=== PATIENT | female | born 1975 | race Two or more races ===

== ENCOUNTER → 2018-03-06 10:17 | Outpatient (CLI) | payer OTHER, SELFPAY ==
--- NOTE | 2018-03-06 10:24 | MM_ITS ---
MM Dig screening mamm BI w/CAD ORDERING PHYSICIAN : [facility] PATIENT AGE: 42 years GENDER: Female COMPARISON: Baseline mammogram INDICATION: ITS.REASON: SCREENING no new complaints. Patient takes control pills. Noncontributory family history TECHNIQUE: Standard CC and MLO images were obtained. R2 CAD reviewed. FINDINGS: . Minimal residual fibroglandular elements scattered throughout both breasts. Mild asymmetry with no dominant mass nor suspicious calcifications. Slightly more evident thyroid gland elements towards upper-outer quadrant left breast and right but these dissipate on the MLO view. Not of concern. CAD computer review highlights no areas of concern either. ------ IMPRESSION: No areas of significant concern mild asymmetry. Follow-up in one year recommended BI-RADS Category: 1 Negative RECOMMENDED FOLLOW-UP: 1YR 1 YEAR FOLLOW-UP (A letter has been sent to the patient regarding results of the study.)
== END ==
PROVIDERS: Family Provider Nurse Practitioner Obstetrics & Gynecology; Visit Provider Nurse Practitioner Obstetrics & Gynecology
DX: Z12.31 Encounter for screening mammogram for malignant neoplasm of breast (principal)
CPT/HCPCS: 77067

== ENCOUNTER 2018-04-12 15:30 | Inpatient (IN) ==
--- NOTE | 2018-04-12 16:12 | Emergency Department Note ---
ED Disposition Clinical Impression: Acute hepatitis, Intractable pain Disposition: Still a Patient Condition on Discharge: Fair - Critical Care Critical Care Time: No Attestation: On 04/12/18, the high probability of a clinically significant, sudden or life threatening deterioration of the following system(s) required my full and direct attention, intervention and personal management. The time I documented below is in addition to time spent performing reported procedures but includes the following listed in this critical care notation. Medical Decision Making - Vj Inquiry Pt receiving controlled substance: No Vj was queried for this patient: No Vital Signs: 04/12/18 15:36 04/12/18 15:43 04/12/18 17:09 Temperature 98.3 F 98.3 F Temperature Source Oral Oral Pulse Rate [Right Radial] 114 H 114 H 102 H Respiratory Rate 20 20 Blood Pressure [Right Arm] 118/66 118/66 104/55 L Blood Pressure Mean [Right Arm] 83 83 71 Blood Pressure Source [Right Arm] Automatic Cuff Automatic Cuff Automatic Cuff Blood Pressure Position [Right Arm] Sitting Sitting Supine 02 Sat by Pulse Oximetry 97 97 99 Oxygen Delivery Method Room Air Room Air Room Air - Lab Data Lab Results 04/12/18 15:55: Urine Color Yellow, Urine Appearance Clear, Urine pH 7.0, Ur Specific [place] 1.020, Urine Protein Negative, Urine Glucose (UA) Negative, Urine Ketones Negative, Urine Blood Negative, Urine Nitrate Negative, Urine Bilirubin Negative, Urine Urobilinogen 1.0, Ur Leukocyte Esterase Negative, Urine WBC Occasional, Ur Squamous Epith Cells 3-5, Urine Bacteria 1+ 04/12/18 15:55: Urine HCG, Qual Negative 04/12/18 15:55: WBC 14.4 H, RBC 4.37, Hgb 14.7, Hct 44.1, MCV 100.9 H, MCH 33.5 H, MCHC 33.2, RDW 12.8, Plt Count 270, MPV 8.0, Neut % (Auto) 92.1 H, Lymph % (Auto) 6.2 L, [place] % (Auto) 1.0 L, Eos % (Auto) 0.6, Baso % (Auto) 0.1, Neut # (Auto) 13.3 H, Lymph # (Auto) 0.9, [place] # (Auto) 0.2, Eos # (Auto) 0.1, Baso # (Auto) 0.0, Total Counted 100, Neutrophils % (Manual) 93 H, Band Neutrophils % 1.0, Lymphocytes % (Manual) 5 L, Monocytes % (Manual) 1 L, Platelet Estimate Normal, RBC Morphology Normal 04/12/18 15:55: Sodium 140, Potassium 3.5, Chloride 103, Carbon Dioxide 27, Anion Gap 13.5, BUN 9, Creatinine 0.66, Estimated Creat Clear 135, Estimated GFR 99, Est GFR ( Amer) 120, Glucose 133 H, Calcium 8.6, Total Bilirubin 1.0, AST 248 H, ALT 169 H, Alkaline Phosphatase 167 H, Total Protein 7.9, Albumin 3.8, Globulin 4.1 H, Albumin/Globulin Ratio 0.9 L, Lipase 163 04/12/18 15:55: Total Creatine Kinase 162, CK-MB (CK-2) 1.9, CK-MB (CK-2) Rel Index 1.2, Troponin I < 0.02 04/12/18 15:55: PT 10.4, INR 1.01, APTT 25.9 04/12/18 18:10: Lactate 1.8 Result diagrams: 04/12/18 15:55 04/12/18 15:55 Orders (Tests/Meds): ED MEDICATIONS Discontinued Medications Generic Name Dose Route Start Last Admin Trade Name Tomy PRN Reason Stop Dose Admin Diatrizoate Meglum/Diatrizoate Sod 30 ml 04/12/18 16:09 04/12/18 16:32 Gastrografin 66%-10% 30ml PO 04/12/18 16:10 30 ml ONCE ONE Administration Sodium Chloride 1,000 mls @ 999 mls/hr 04/12/18 16:45 04/12/18 16:38 Sod Chlor 0.9% 1000ml Bag IV 04/12/18 17:45 999 mls/hr .Q1H1M RUBY Administration Iopamidol 75 ml 04/12/18 18:30 04/12/18 18:32 [id number]; 75ml Vial IV 04/12/18 18:31 75 ml ONCE ONE Administration Protocol Morphine Sulfate 2 mg 04/12/18 16:32 04/12/18 16:38 Morphine 2mg/Ml Syringe IV 04/12/18 16:33 2 mg ONCE ONE Administration Morphine Sulfate 2 mg 04/12/18 18:37 04/12/18 18:40 Morphine 2mg/Ml Syringe IV 04/12/18 18:38 2 mg ONCE ONE Administration Ondansetron HCl 4 mg 04/12/18 16:32 04/12/18 16:38 Zofran 4mg/2ml Vial IV 04/12/18 16:33 4 mg ONCE ONE Administration Sodium Chloride 10 ml 04/12/18 18:30 04/12/18 18:32 Rad-Saline Flush 10ml Syringe IV 04/12/18 18:31 10 ml ONCE ONE Administration ORDERS Category Date Time Status CT abdomen pelvis w con Stat Cat Scan 04/12/18 16:09 Taken Urinalysis and Microscopic Stat Lab 04/12/18 15:55 Ordered Blood Culture Stat Micro 04/12/18 18:10 Received ECG Request by /Tesfaye Stat Y 04/12/18 16:14 Ordered - CT Data CT Scan: Abdomen, Pelvis Time Received: 19:[address] Reviewed: Yes: I have viewed the radiologist's interpretation Preliminary Findings: Normal/NAD - ECG Data Tracing #1 Sinus tachycardia 103/min baseline artifact no acute ST segment or T wave changes ECG initial impression date: 04/12/18 ECG initial impression time: 16:25 Medical Decision Narrative: Patient underwent lab work was positive for elevated liver function test with normal bilirubin and lipase. I spoke with Dr. Jeff on-call physician for unassigned patients who agreed to admit the patient for supportive care in the form of IV fluids pain control and hepatitis panel. Abdominal Pain HPI - General Chief Complaint: Abdominal Pain Stated Complaint: stomach to back pain Time Seen by Provider: 04/12/18 15:40 Mode of Arrival: Ambulatory Source of Information: Patient Limitations: No Limitations Description of Symptoms (Recalled from ER Triage Doc. 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 denies any [place], vomiting, diarrhea. cpta none - History of Present Illness HPI narrative: 42 yrs old splenic female status post cholecystectomy who developed epigastric p ain of 3 hours duration following breakfast. The pain is crampy radiating across the upper abdomen rated 8/10 without nausea vomiting or diarrhea. No hematemesis no coffee-ground emesis no melanotic stool no bleeding per rectum. MD complaint: abdominal pain Onset (ago): hour(s) (3 hours) Consistency: constant Location: epigastric Severity: moderate Severity scale (1-10): 8 Quality: cramping Relieving factors: nothing Exacerbating factors: nothing Associated symptoms: denies other symptoms - Related Data Home Medications Medication Instructions Recorded Confirmed No Known Home Medications 04/12/18 04/12/18 Allergies Allergy/AdvReac Type Severity Reaction Status Date / Time NO KNOWN ALLERGIES Allergy Uncoded 06/17/17 15:22 [facility] History I have reviewed the patient's past medical history: Yes Other Surgeries: Yes: No Previous Surgery - Social History Smoking Status: Never smoker Alcohol Intake: never - Psychiatric History Expresses thoughts of harming self/others: None Suicide Plan Description: No Plan Family Hx:: No significant family history ROS Obtained: Yes All systems reviewed & no additional complaints Physical Exam - General General appearance: alert, in no apparent distress - Head Head exam: atraumatic, normocephalic, normal inspection - Eye Eye exam: Present: normal appearance, PERRL, EOMI. Absent: scleral icterus, nystagmus - ENT ENT exam: Present: normal exam, normal oropharynx, mucous membranes moist, TM's normal bilaterally, normal external ear exam - Neck Neck exam: Present: normal inspection, full ROM, trachea midline. Absent: tenderness, meningismus, lymphadenopathy - Chest Chest inspection: Present: normal inspection, symmetric chest wall rise. Absent: tenderness - Respiratory Respiratory exam: Present: normal lung sounds bilaterally. Absent: respiratory distress, wheezes - Cardiovascular Cardiovascular exam: Present: regular rate, normal rhythm, normal heart sounds. Absent: JVD - Abdominal Exam Abdominal exam: Present: soft, tenderness, normal bowel sounds. Absent: distention, guarding, rebound, rigidity, Dean's sign, tenderness at McBurney's Point - Extremities Exam Extremities exam: Present: normal inspection, full ROM, normal capillary refill. Absent: tenderness, calf tenderness - Back Exam Back exam: Present: normal inspection. Absent: tenderness, CVA tenderness (R), CVA tenderness (L) - Neurological Exam Neurological exam: Present: alert, oriented X3, CN II-XII intact, motor sensory deficit, reflexes normal - Psychiatric Psychiatric exam: Present: normal affect, normal mood - Skin Skin exam: Present: warm, dry, intact, normal color - Lymphatic Lymphatic Findings: no adenopathy
[2018-04-12 16:20] LABS: Microscopic, Urine URINE MICROSCOPIC (MICROSCOPIC)
[2018-04-12 16:22] LABS: Appearance,Urine CLEAR (Clear); Bilirubin,Urine Negative (Negative); Blood, Urine Negative (Negative); Color,Urine YELLOW (Yellow); Glucose,Urine (UA) Negative (Negative); Ketones,Urine Negative (Negative); Leukocyte Esterase,Urine Negative (Negative); Protein,Urine Negative (Negative)
[2018-04-12 16:23] LABS: Basophils % 0.1 % (0.1-2.0); Eosinophils # 0.1 K/mm3 (0.0-0.4); Eosinophils % 0.6 % (0.1-12.0); Hematocrit 44.1 % (37.0-47.0); Hemoglobin 14.7 g/dL (12.2-16.2); Lymphocytes # 0.9 K/mm3 (0.7-4.5); Lymphocytes % 6.2 K/mm3 (10-50); Mean Corpuscular HGB Conc 33.2 g/dL (31.8-35.4); Mean Corpuscular Hemoglobin 33.5 pg (27.0-31.2); Mean Corpuscular Volume 100.9 fl (81-99); Monocytes # 0.2 K/mm3 (0.1-1.0); Neutrophils # 13.3 K/mm3 (1.8-7.8); Neutrophils % 92.1 % (37.0-80.0); Platelet Count 270 K/mm3 (142-424); Red Blood Count 4.37 M/mm3 (4.20-5.40); Red Cell Distribution Width 12.8 % (11.5-17.5); White Blood Count 14.4 K/mm3 (4.8-10.8)
[2018-04-12 16:30] LABS: Bacteria,Urine 1+ /lpf; WBC,Urine Occasional #/hpf (0-3)
[2018-04-12 16:36] LABS: Albumin Level 3.8 gm/dL (3.4-5.0); Albumin/Globulin Ratio 0.9 (1.1-1.8); Anion Gap 13.5 mEq/L (5-15); Calcium 8.6 mg/dL (8.5-10.1); Globulin 4.1 gm/dl (1.3-3.2); Potassium 3.5 mmoL/L (3.5-5.1); Total Protein,Serum 7.9 gm/dL (6.4-8.2)
[2018-04-12 16:38] LABS: Lymphocytes % 5 % (10-50); Monocytes % 1 % (2-9); Neutrophils % 93 % (42-76); RBC Morphology Normal; Total Cells Counted 100
[2018-04-12 16:42] LABS: Creatine Kinase 162 U/L (26-192)
[2018-04-12 17:21] LABS: Activated Partial Thrombo Time 25.9 seconds (23.6-34.0); INR 1.01 (0.9-1.1); Prothrombin Time 10.4 seconds (9.4-11.8)
--- NOTE | 2018-04-13 06:59 | History & Physical Report ---
*Admission Date: 04/13/18 *Chief complaint: Abdominal pain *History of present illness: 42-year-old female with history of prior cholecystectomy presented to the emergency department with complaint of abdominal pain. Patient tells me that she has had this pain in the past and will usually last 5-10 minutes. However yesterday pain was onset around noon and after 2 hours of pain she decided to seek treatment at the emergency department. In the ER workup was significant for elevated liver function tests. Patient denies fevers, chills, nausea, vomiting, diarrhea. She has no sick contacts. She was treated with morphine for pain in the emergency department. Pain resolved. Patient was admitted for monitoring of recurrence of pain as well as repeat labs and ultrasound this a.m. Patient was able to tolerate p.o. intake after admission. [facility] History I have reviewed the patient's past medical history: Yes Other Surgeries: Yes: Cholecystectomy - *Social History Educational Level: Completed Grade School Smoking Status: Never smoker Alcohol Intake: never Occupational Status: employed Housing: other Household Members: children - Psychiatric History Expresses thoughts of harming self/others: None Suicide Plan Description: No Plan *Family Hx:: No significant family history Review of Systems - Review of Systems Review of systems:: pertinent systems reviewed and negative unless documented below - Constitutional Denies anorexia, Denies body ache(s), Denies chills - Eyes Denies blurry vision - *Cardiovascular Denies chest pain, Denies chest pain at rest - *Respiratory Denies change in phlegm color, Denies chest congestion - *Gastrointestinal Reports cramping, Denies bloating, Denies change in bowel habits, Denies loose stools, Denies difficulty swallowing, Denies feeling full early, Denies excessive passing of gas Meds Home Medications Medication Instructions Recorded Confirmed Type No Known Home Medications 04/12/18 04/12/18 History Allergies Allergy/AdvReac Type Severity Reaction Status Date / Time NO KNOWN ALLERGIES Allergy Uncoded 06/17/17 15:22 Exam Vital signs and Labs for Last 24 Hours: Temp Pulse Resp BP Pulse Ox 98.4 F 77 16 94/57 L 97 04/13/18 04:00 04/13/18 04:00 04/13/18 04:00 04/13/18 04:00 04/13/18 04:00 Laboratory Results - last 24 hr 04/12/18 15:55: Urine Color Yellow, Urine Appearance Clear, Urine pH 7.0, Ur Specific [place] 1.020, Urine Protein Negative, Urine Glucose (UA) Negative, Urine Ketones Negative, Urine Blood Negative, Urine Nitrate Negative, Urine Bilirubin Negative, Urine Urobilinogen 1.0, Ur Leukocyte Esterase Negative, Urine WBC Occasional, Ur Squamous Epith Cells 3-5, Urine Bacteria 1+ 04/12/18 15:55: Urine HCG, Qual Negative 04/12/18 15:55: WBC 14.4 H, RBC 4.37, Hgb 14.7, Hct 44.1, MCV 100.9 H, MCH 33.5 H, MCHC 33.2, RDW 12.8, Plt Count 270, MPV 8.0, Neut % (Auto) 92.1 H, Lymph % (Auto) 6.2 L, [place] % (Auto) 1.0 L, Eos % (Auto) 0.6, Baso % (Auto) 0.1, Neut # (Auto) 13.3 H, Lymph # (Auto) 0.9, [place] # (Auto) 0.2, Eos # (Auto) 0.1, Baso # (Auto) 0.0, Total Counted 100, Neutrophils % (Manual) 93 H, Band Neutrophils % 1.0, Lymphocytes % (Manual) 5 L, Monocytes % (Manual) 1 L, Platelet Estimate Normal, RBC Morphology Normal 04/12/18 15:55: Sodium 140, Potassium 3.5, Chloride 103, Carbon Dioxide 27, Anion Gap 13.5, BUN 9, Creatinine 0.66, Estimated Creat Clear 135, Estimated GFR 99, Est GFR ( Amer) 120, Glucose 133 H, Calcium 8.6, Total Bilirubin 1.0, AST 248 H, ALT 169 H, Alkaline Phosphatase 167 H, Total Protein 7.9, Albumin 3.8, Globulin 4.1 H, Albumin/Globulin Ratio 0.9 L, Lipase 163 04/12/18 15:55: Total Creatine Kinase 162, CK-MB (CK-2) 1.9, CK-MB (CK-2) Rel Index 1.2, Troponin I < 0.02 04/12/18 15:55: PT 10.4, INR 1.01, APTT 25.9 04/12/18 18:10: Lactate 1.8 I & O for Last 24 hours: Intake & Output 10/12/18 10/13/18 10/14/18 10/15/18 11:59 11:59 11:59 11:59 Intake Total 941 / 941 Balance 941 / 941 Weight 161 lb 8 oz Narrative: Patient is laying comfortably in bed in no distress. Eyes without scleral icterus. Oropharynx is moist. Neck is without lymphadenopathy. Lungs are clear to auscultation. Heart has regular rate and rhythm. Abdomen is soft, nontender, nondistended. Bowel sounds are present Assessment and Plan (1) Acute hepatitis Current visit: Yes Status: Acute Category: Medical Code(s): B17.9 - Acute viral hepatitis, unspecified - Assessment and plan all Dx Assessment and Plan for all problems:: Ultrasound of the abdomen today and await repeat liver function test. Patient is feeling better. Her diet will be advanced after ultrasound. Anticipate discharge home later this afternoon
[2018-04-13 07:19] LABS: Albumin Level 2.8 gm/dL (3.4-5.0); Anion Gap 9.8 mEq/L (5-15); Bilirubin,Direct 0.5 mg/dL (0.0-0.2); Bilirubin,Indirect 0.6 mg/dL (0.0-0.9); Bilirubin,Total 1.1 mg/dL (0.2-1.0); Potassium 3.8 mmoL/L (3.5-5.1); Total Protein,Serum 6.1 gm/dL (6.4-8.2)
[2018-04-13 07:21] LABS: INR 1.1 (0.9-1.1); Prothrombin Time 11.3 seconds (9.4-11.8)
--- NOTE | 2018-04-13 07:33 | Pharmacy Consult Notes ---
[facility] Pharmacy VTE Monitoring - Patient Demographics Admission date: 04/13/18 Report Date: 04/13/18 Time: 07:32 Allergies/Adverse Reactions: Patient Allergies NO KNOWN ALLERGIES Allergy (Uncoded 06/17/17 15:22) Height: 1.55 m Weight: 73.255 kg Patient Problems: Current Active Problems (This Medical Record has been edited. Action required.) Acute hepatitis (Acute) Intractable pain (Acute) - VTE Risk Labs: VTE Related Lab Results Hgb 14.7 g/dL (12.2-16.2) 04/12/18 15:55 Hct 44.1 % (37.0-47.0) 04/12/18 15:55 Plt Count 270 K/mm3 (142-424) 04/12/18 15:55 PT 11.3 seconds (9.4-11.8) 04/13/18 06:35 INR 1.10 (0.9-1.1) 04/13/18 06:35 APTT 25.9 seconds (23.6-34.0) 04/12/18 15:55 BUN 6 mg/dL (7-18) L D 04/13/18 06:35 Creatinine 0.59 mg/dL (0.55-1.02) 04/13/18 06:35 Estimated Creat Clear 147 mL/min (0-300) 04/13/18 06:35 Was VTE Risk Assessment Performed: Yes VTE Score: 0 VTE Risk Level: Very Low Risk Clinical Trial Participant: No - Prophylaxis VTE Prophylaxis Ordered?: Yes Types of VTE Prophylaxis: TEDS Knee High
[2018-04-13 07:38] LABS: Calcium 7.7 mg/dL (8.5-10.1)
[2018-04-14 06:04] LABS: Basophils % 0.4 % (0.1-2.0); Eosinophils # 0.1 K/mm3 (0.0-0.4); Hematocrit 37.3 % (37.0-47.0); Hemoglobin 12.1 g/dL (12.2-16.2); Lymphocytes # 1.3 K/mm3 (0.7-4.5); Lymphocytes % 23.3 K/mm3 (10-50); Mean Corpuscular HGB Conc 32.5 g/dL (31.8-35.4); Mean Corpuscular Hemoglobin 33.3 pg (27.0-31.2); Mean Corpuscular Volume 102.4 fl (81-99); Mean Platelet Volume 8.3 fl (7.4-10.4); Monocytes # 0.3 K/mm3 (0.1-1.0); Monocytes % 6.1 % (1.7-9.3); Neutrophils # 3.7 K/mm3 (1.8-7.8); Neutrophils % 68.2 % (37.0-80.0); Platelet Count 200 K/mm3 (142-424); Red Blood Count 3.65 M/mm3 (4.20-5.40); Red Cell Distribution Width 12.9 % (11.5-17.5); White Blood Count 5.5 K/mm3 (4.8-10.8)
[2018-04-14 06:09] LABS: Bilirubin,Direct 0.2 mg/dL (0.0-0.2); Bilirubin,Indirect 0.4 mg/dL (0.0-0.9); Bilirubin,Total 0.6 mg/dL (0.2-1.0); Total Protein,Serum 6.5 gm/dL (6.4-8.2)
--- NOTE | 2018-04-14 07:13 | Discharge Summary ---
General - General Admission date:: 04/12/18 Discharge date: 04/14/18 HPI HPI: 42-year-old female with history of prior cholecystectomy presented to the emergency department with complaint of abdominal pain. Patient tells me that she has had this pain in the past and will usually last 5-10 minutes. However yesterday pain was onset around noon and after 2 hours of pain she decided to seek treatment at the emergency department. In the ER workup was significant for elevated liver function tests. Patient denies fevers, chills, nausea, vomiting, diarrhea. She has no sick contacts. She was treated with morphine for pain in the emergency department. Pain resolved. Patient was admitted for monitoring of recurrence of pain as well as repeat labs and ultrasound this a.m. Patient was able to tolerate p.o. intake after admission. Hospital Course Hospital Course: Patient was admtted for pain control. She did not require any further IV narcotics. The following morning LFT's had risen. Her aerobic blood culture was positive for e.coli. Patient was given IV rocephin. She did not develop any fevers or futher episodes of abdominal pain. Her CT scan of the abdomen/pelvis showed pneumobilia. Her ultrasound of the liver showed pneumobilia. On 04/14 her LFT's were trending down. She remained afebrile. She was discharged to home. Because of her E. coli sepsis(tachycardia on admit, elevated lft's, hypotension) she will need IV rocephin daily for a total of 7 days. She will follow up in my office on Apr 20 at 10 with Sherrie Zuniga APRN Objective Vital signs: Temp Pulse Resp BP Pulse Ox 98.2 F 61 16 90/60 L 100 04/14/18 03:48 04/14/18 03:48 04/14/18 03:48 04/14/18 03:48 04/14/18 03:48 Results Labs on day of discharge: Labs from last 24 hours 04/14/18 04/14/18 04/13/18 05:35 05:35 06:35 WBC 5.5 D RBC 3.65 L Hgb 12.1 L Hct 37.3 MCV 102.4 H MCH 33.3 H MCHC 32.5 RDW 12.9 Plt Count 200 D MPV 8.3 Neut % (Auto) 68.2 Lymph % (Auto) 23.3 [place] % (Auto) 6.1 Eos % (Auto) 2.0 Baso % (Auto) 0.4 Neut # (Auto) 3.7 Lymph # (Auto) 1.3 [place] # (Auto) 0.3 Eos # (Auto) 0.1 Baso # (Auto) 0.0 PT INR Sodium 137 Potassium 3.8 Chloride 106 Carbon Dioxide 25 Anion Gap 9.8 BUN 6 L D Creatinine 0.59 Estimated Creat Clear 147 Estimated GFR 113 Est GFR ( Amer) 137 Glucose 113 H Calcium 7.7 L D Total Bilirubin 0.6 1.1 H Direct Bilirubin 0.2 0.5 H Indirect Bilirubin 0.4 0.6 AST 105 H D 285 H ALT 259 H D 369 H* Alkaline Phosphatase 170 H 151 H Total Protein 6.5 6.1 L Albumin 3.0 L 2.8 L D 04/13/18 06:35 WBC RBC Hgb Hct MCV MCH MCHC RDW Plt Count MPV Neut % (Auto) Lymph % (Auto) [place] % (Auto) Eos % (Auto) Baso % (Auto) Neut # (Auto) Lymph # (Auto) [place] # (Auto) Eos # (Auto) Baso # (Auto) PT 11.3 INR 1.10 Sodium Potassium Chloride Carbon Dioxide Anion Gap BUN Creatinine Estimated Creat Clear Estimated GFR Est GFR ( Amer) Glucose Calcium Total Bilirubin Direct Bilirubin Indirect Bilirubin AST ALT Alkaline Phosphatase Total Protein Albumin Preliminary micro results at discharge 04/12/18 18:10 Blood Culture - Preliminary Blood DS: Diagnosis - Discharge Diagnosis (1) Acute hepatitis Status: Acute (2) Sepsis due to Escherichia coli Status: Acute Discharge Plan - Patient Discharge Instructions ACTIVITY: Continue current activity DIET: continue same diet Additional Instructions: Return to the hospital daily for IV infusion of Rocephin until Apr 19. - Follow up Plan Follow up with: Sherrie Zuniga APRN [Nurse Practitioner] - 04/20/18 10:00 am Disposition: Home, Self-Residential Medications: Home Medications Medication Instructions Recorded Confirmed Type No Known Home Medications 04/12/18 04/12/18 History Prescriptions/Medication Reconciliation: New Ceftriaxone 1 gm [Rocephin 1gm ADV] 1 gm IV Q24H vial.port No Action No Known Home Medications
[2018-04-14 11:17] LABS: Hepatitis B Core Antibody IgM Negative (Negative); Hepatitis B Surface Antigen Negative (Negative)
[2018-04-15 13:06] LABS: Hepatitis C Antibody <0.1 s/co ratio (0.0-0.9)
== END 2018-04-14 09:10 | disposition home or self-care (01) ==
LOC: ER 15:30 → 2ND 15:30 → OBSVTOIN 18:31 → 2ND 20:27
PROVIDERS: ADMIT Family Medicine; ATTEND Family Medicine

== ENCOUNTER 2018-04-15 09:55 | Outpatient (CLI) | payer OTHER, SELFPAY ==
[2018-04-15 10:40] VITALS: BP 104/65; PULSE 72; RESP 18; TEMP 36.5; O2SAT 99
[2018-04-15 11:10] VITALS: BP 108/61; PULSE 74; RESP 18; O2SAT 98
[2018-04-15 11:20] VITALS: BP 105/66; PULSE 76; RESP 18; O2SAT 99
== END 2018-04-15 11:25 | disposition home or self-care (01) ==
LOC: INF 09:55
PROVIDERS: Family Provider Nurse Practitioner Obstetrics & Gynecology; Visit Provider Family Medicine
DX: A41.51 Sepsis due to Escherichia coli [E. coli] (principal)
CPT/HCPCS: 96365

== ENCOUNTER 2018-04-16 10:00 | Outpatient (CLI) | payer OTHER, SELFPAY ==
[2018-04-16 10:20] VITALS: BP 96/55; PULSE 60; RESP 18; TEMP 37.1; O2SAT 98
[2018-04-16 10:45] VITALS: BP 103/58; PULSE 60; RESP 16
[2018-04-16 11:10] VITALS: BP 99/57; PULSE 55; RESP 16
== END 2018-04-16 11:15 | disposition home or self-care (01) ==
LOC: INF 10:11
PROVIDERS: Family Provider Nurse Practitioner Obstetrics & Gynecology; Visit Provider Family Medicine
DX: A41.51 Sepsis due to Escherichia coli [E. coli] (principal); B17.9 Acute viral hepatitis, unspecified
CPT/HCPCS: 96365

== ENCOUNTER 2018-04-17 10:17 | Outpatient (CLI) | payer OTHER, SELFPAY ==
[2018-04-17 10:35] VITALS: BP 117/66; PULSE 66; RESP 18; TEMP 36.6
[2018-04-17 11:05] VITALS: BP 89/53; PULSE 57; RESP 16
== END 2018-04-17 11:35 | disposition home or self-care (01) ==
LOC: INF 10:17
PROVIDERS: Visit Provider Family Medicine
DX: A41.51 Sepsis due to Escherichia coli [E. coli] (principal); B17.9 Acute viral hepatitis, unspecified
CPT/HCPCS: 96365

== ENCOUNTER → 2018-04-18 10:00 | Outpatient (CLI) | payer OTHER, SELFPAY ==
[2018-04-18 10:20] VITALS: BP 94/49; PULSE 61; RESP 18; TEMP 36.2; O2SAT 98; BMI 30.4
[2018-04-18 10:46] VITALS: BP 97/50; PULSE 57; RESP 18; TEMP 36.9; O2SAT 96
== END ==
PROVIDERS: Family Provider Nurse Practitioner Obstetrics & Gynecology; Visit Provider Family Medicine
DX: A41.51 Sepsis due to Escherichia coli [E. coli] (principal); B17.9 Acute viral hepatitis, unspecified
CPT/HCPCS: 96365; 96374

== ENCOUNTER → 2018-04-19 09:56 | Outpatient (CLI) | payer OTHER, SELFPAY ==
[2018-04-19 10:52] VITALS: BP 102/61; PULSE 58; RESP 16; TEMP 36.9; O2SAT 100; BMI 30.4
[2018-04-19 11:28] VITALS: BP 105/51; PULSE 62; RESP 16; TEMP 36.7; O2SAT 100
--- NOTE | 2018-04-19 11:29 | PC.NURSE ---
(L)FA IV discontinued using aseptic technique. Tip intact. No s/s of infection. Site covered /c 2x2 gauze and secured /c coban. Pt instructed to remove coban and dressing after 1-2 hours. If site becomes painful, warm, reddened, or has discharge, pt instructed to call MD or present to [facility]. Pt verbalized understanding.
== END ==
PROVIDERS: Family Provider Nurse Practitioner Obstetrics & Gynecology; Visit Provider Family Medicine
DX: A41.51 Sepsis due to Escherichia coli [E. coli] (principal); B17.9 Acute viral hepatitis, unspecified
CPT/HCPCS: 96365; G0463

== ENCOUNTER 2018-08-02 02:33 | Inpatient (IN) ==
[2018-08-02 03:02] LABS: Appearance,Urine CLEAR (Clear); Bilirubin,Urine Negative (Negative); Blood, Urine Negative (Negative); Color,Urine YELLOW (Yellow); Glucose,Urine (UA) Negative (Negative); Ketones,Urine Negative (Negative); Leukocyte Esterase,Urine Negative (Negative); Microscopic, Urine URINE MICROSCOPIC (MICROSCOPIC); PH,Urine 7.5 (5.0-8.5); Protein,Urine Negative (Negative); Urobilinogen,Urine 0.2 EU/dl (0.2)
[2018-08-02 03:11] LABS: Basophils % 0.1 % (0.1-2.0); Eosinophils # 0.1 K/mm3 (0.0-0.4); Hematocrit 41.2 % (37.0-47.0); Hemoglobin 13.9 g/dL (12.2-16.2); Lymphocytes # 0.7 K/mm3 (0.7-4.5); Lymphocytes % 10.3 % (10-50); Mean Corpuscular HGB Conc 33.8 g/dL (31.8-35.4); Mean Corpuscular Hemoglobin 33.1 pg (27.0-31.2); Mean Platelet Volume 7.9 fl (7.4-10.4); Monocytes # 0.1 K/mm3 (0.1-1.0); Monocytes % 1.2 % (1.7-9.3); Neutrophils # 5.6 K/mm3 (1.8-7.8); Neutrophils % 87.4 % (37.0-80.0); Platelet Count 272 K/mm3 (142-424); Red Cell Distribution Width 13.2 % (11.5-17.5); White Blood Count 6.4 K/mm3 (4.8-10.8)
[2018-08-02 03:21] LABS: Alanine Aminotransferase 123 U/L (12-78); Albumin Level 3.6 gm/dL (3.4-5.0); Albumin/Globulin Ratio 0.9 (1.1-1.8); Alkaline Phosphatase 146 U/L (46-116); Amylase 101 U/L (25-115); Anion Gap 15.5 mEq/L (5-15); Aspartate Amino Transferase 172 U/L (15-37); Bilirubin,Total 0.9 mg/dL (0.2-1.0); Blood Urea Nitrogen 14 mg/dL (7-18); Calcium 8.9 mg/dL (8.5-10.1); Carbon Dioxide 26 mmol/L (21.0-32.0); Chloride 102 mmol/L (98-107); Globulin 3.8 gm/dl (1.3-3.2); Glucose 152 mg/dL (74-106); Lipase 174 u/L (73-393); Potassium 3.5 mmoL/L (3.5-5.1); Sodium 140 mmol/L (136-145); Total Protein,Serum 7.4 gm/dL (6.4-8.2)
[2018-08-02 03:23] LABS: Eosinophils % 3 % (0-3); Lymphocytes % 5 % (10-50); Neutrophils % 82 % (42-76); RBC Morphology Normal; Total Cells Counted 100
[2018-08-02 03:24] LABS: C-Reactive Protein < 0.2 mg/L (0.0-0.9)
--- NOTE | 2018-08-02 03:24 | Emergency Department Note ---
ED Disposition Clinical Impression: Cholangitis Disposition: Admitted as Observation Condition on Discharge: Good Instructions: DI for Acute Abdomen Referrals: Provider,Referral, [Primary Care Provider] - - Critical Care Critical Care Time: No Attestation: On 08/02/18, the high probability of a clinically significant, sudden or life threatening deterioration of the following system(s) required my full and direct attention, intervention and personal management. The time I documented below is in addition to time spent performing reported procedures but includes the fol lowing listed in this critical care notation. Medical Decision Making - Medical Records Medical records reviewed: Yes: I reviewed the patient's medical records. - Vj Inquiry Pt receiving controlled substance: No Vital Signs: 08/02/18 02:44 08/02/18 03:05 08/02/18 04:47 Temperature 99.3 F Temperature Source Oral Pulse Rate [Right Radial] 143 H 114 H 97 H Respiratory Rate 18 18 16 Blood Pressure [Right Arm] 139/79 135/79 128/71 Blood Pressure Mean [Right Arm] 99 97 90 Blood Pressure Source [Right Arm] Automatic Cuff 02 Sat by Pulse Oximetry 100 97 98 Oxygen Delivery Method Room Air Room Air - Lab Data Lab results reviewed: Yes: I reviewed the patient's lab results. Lab Results 08/02/18 02:50: Urine Color Yellow, Urine Appearance Clear, Urine pH 7.5, Ur S pecific [place] 1.010, Urine Protein Negative, Urine Glucose (UA) Negative, Urine Ketones Negative, Urine Blood Negative, Urine Nitrate Negative, Urine Bilirubin Negative, Urine Urobilinogen 0.2, Ur Leukocyte Esterase Negative, Ur Squamous Epith Cells 3-5 08/02/18 02:50: WBC 6.4, RBC 4.20, Hgb 13.9, Hct 41.2, MCV 98.0, MCH 33.1 H, MCHC 33.8, RDW 13.2, Plt Count 272, MPV 7.9, Neut % (Auto) 87.4 H, Lymph % (Auto) 10.3, [place] % (Auto) 1.2 L, Eos % (Auto) 1.0, Baso % (Auto) 0.1, Neut # (Auto) 5.6, Lymph # (Auto) 0.7, [place] # (Auto) 0.1, Eos # (Auto) 0.1, Baso # (Auto) 0.0, Total Counted 100, Neutrophils % (Manual) 82 H, Band Neutrophils % 10.0 H, Lymphocytes % (Manual) 5 L, Eosinophils % (Manual) 3, Platelet Estimate Normal, RBC Morphology Normal 08/02/18 02:50: Urine HCG, Qual Negative 08/02/18 02:50: Sodium 140, Potassium 3.5, Chloride 102, Carbon Dioxide 26, Anion Gap 15.5 H, BUN 14, Creatinine 0.96, Estimated Creat Clear 86, Estimated GFR 64, Est GFR ( Amer) 78, Glucose 152 H, Calcium 8.9, Total Bilirubin 0.9, AST 172 H, ALT 123 H, Alkaline Phosphatase 146 H, C-Reactive Protein < 0.2, Total Protein 7.4, Albumin 3.6, Globulin 3.8 H, Albumin/Globulin Ratio 0.9 L, Amylase 101, Lipase 174 08/02/18 02:50: Influenza Type A Ag Negative, Influenza Type B Ag Negative 08/02/18 02:50: Lactate 3.4 H 08/02/18 02:50: ESR 12 Result diagrams: 08/02/18 02:50 08/02/18 02:50 Orders (Tests/Meds): ED MEDICATIONS Generic Name Dose Route Start Last Admin Trade Name Freq PRN Reason Stop Dose Admin Sodium Chloride 1,000 mls @ 999 mls/hr 08/02/18 03:00 08/02/18 03:01 Sod Chlor 0.9% 1000ml Bag IV 08/02/18 04:00 999 mls/hr .Q1H1M RUBY Administration Sodium Chloride 10 ml 08/02/18 02:50 Saline Flush 10ml Syringe IV 09/01/18 02:49 NEEDED PRN Maintain IV Site Discontinued Medications Generic Name Dose Route Start Last Admin Trade Name Freq PRN Reason Stop Dose Admin Famotidine 20 mg 08/02/18 02:50 08/02/18 03:01 Pepcid 20mg/2ml Vial IV 08/02/18 02:51 20 mg ONCE ONE Administration Ketorolac Tromethamine 30 mg 08/02/18 02:50 08/02/18 03:01 Toradol 30mg/Ml Vial IV 08/02/18 02:51 30 mg ONCE ONE Administration Metoclopramide HCl 10 mg 08/02/18 02:52 08/02/18 03:01 Reglan 10mg/2ml Vial IVP 08/02/18 02:53 10 mg ONCE ONE Administration Ondansetron HCl 4 mg 08/02/18 02:50 08/02/18 03:01 Zofran 4mg/2ml Vial IV 08/02/18 02:51 4 mg ONCE ONE Administration Sodium Chloride 10 ml 08/02/18 03:57 08/02/18 03:57 Rad-Saline Flush 10ml Syringe IV 08/02/18 03:58 10 ml ONCE ONE Administration ORDERS Category Date Time Status CT abdomen pelvis w con Stat Cat Scan 08/02/18 02:50 Taken Urinalysis and Microscopic Stat Lab 08/02/18 02:50 Ordered Blood Culture Stat Micro 08/02/18 02:58 Ordered - CT Data CT Scan: Abdomen, Pelvis Time Received: 04:[address] Reviewed: Yes: I have viewed the radiologist's interpretation Preliminary Findings: Abnormal (pneumobilia) - Physician Consults Physician Consulted: devin Reason -: Admission Nausea/Vomiting/Diarrhea HPI - General Chief complaint: Abdominal Pain Stated complaint: stomach pain and lower back pain Time Seen by Provider: 08/02/18 02:55 Mode of Arrival: Family Vehicle Source of Information: Patient, Medical Record Limitations: No Limitations Description of Symptoms (Recalled from ER Triage Doc. by RN): pt c/o abd pain that radiates around her right side into her back. pt denies n/v/d. pt states she has been having chills. pt states that this happened to her once before and they told her it was hepatitis but her doctor told her it ended up only being a swollen liver. - History of Present Illness HPI Narrative: upper abd pain rad to back which started today - she has had pain in past and was related to liver dis- she reports no etoh MD complaint: nausea, vomiting, abdominal pain Onset (ago): day(s) Associated Abdominal Pain: Yes Location of pain: epigastric Radiation: other (back) Severity: moderate Associated symptoms: denies other symptoms - Related Data Home Medications Medication Instructions Recorded Confirmed No Known Home Medications 08/02/18 08/02/18 Allergies Allergy/AdvReac Type Severity Reaction Status Date / Time No Known Allergies Allergy Verified 08/02/18 02:50 [facility] History - Hepatitis A Screen Drug use history?: No High risk sexual behaviors?: No History of sexually transmitted infection?: No Currently employed?: No Childcare worker?: No Do you have indoor plumbing?: Yes Do you have electricity?: Yes Attestation statement:: This patient has been screened for Hepatitis A risk factors. I have reviewed the patient's past medical history: Yes Medical History: Denies:: Cancer, Diabetes Mellitus Type 1, Diabetes Mellitus Type 2, MRSA Other Surgeries: Yes: No Previous Surgery, Cholecystectomy Amputation: No Fractures: No - Social History Smoking Status: Never smoker Alcohol Intake: never Occupational Status: employed Housing: other Household Members: children - Psychiatric History Expresses thoughts of harming self/others: None Suicide Plan Description: No Plan Family Hx:: No significant family history ROS Obtained: Yes All systems reviewed & no additional complaints - Constitutional Constitutional: Denies fever(s) - Eyes Eyes: Denies change in vision - ENT Ears, Nose, Mouth, and Throat: Denies sore throat - Cardiovascular Cardiovascular: Denies chest pain - Respiratory Respiratory: No cough - Gastrointestinal Gastrointestingal: Reports: as per HPI, abdominal pain, nausea, vomiting. Denies: diarrhea - Genitourinary Female Genitourinary: Denies pelvic pain - Musculoskeletal Musculoskeletal: Denies joint pain, Denies joint swelling - Integumentary/Breasts Skin/Breast: Denies rash - Neurologic Neurologic: Denies headache(s), Denies seizure-like activity Physical Exam - General General appearance: alert - Head Head exam: normocephalic - Eye Eye exam: Present: PERRL, EOMI. Absent: scleral icterus - ENT ENT exam: Present: mucous membranes dry - Neck Neck exam: Present: trachea midline - Respiratory Respiratory exam: Absent: respiratory distress - Cardiovascular Cardiovascular exam: Present: regular rate. Absent: systolic murmur - Abdominal Exam Abdominal exam: Present: soft, tenderness Abdominal tenderness: Present: epigastrium, moderate - Extremities Exam Extremities exam: Present: full ROM - Neurological Exam Neurological exam: Present: alert, oriented X3, CN II-XII intact - Psychiatric Psychiatric exam: Present: normal affect - Skin Skin exam: Absent: rash
[2018-08-02 05:34] LABS: Albumin Level 3.6 gm/dL (3.4-5.0); Bilirubin,Direct 0.3 mg/dL (0.0-0.2); Bilirubin,Indirect 0.5 mg/dL (0.0-0.9); Bilirubin,Total 0.8 mg/dL (0.2-1.0); Total Protein,Serum 7.4 gm/dL (6.4-8.2)
--- NOTE | 2018-08-02 06:56 | History & Physical Report ---
*Admission Date: 08/02/18 *Chief complaint: Abdominal pain *History of present illness: 42-year-old female presented to the emergency department early this morning with complaints of epigastric abdominal pain. Onset of pain was around 9 PM yesterday evening 2 hours after she had last eaten. Patient's last meal was tacos. Pain gradually increased through the night until she presented to the emergency department. Pain was reminiscent of similar pain that led to hospitalization in March 2018 when patient was found to have pneumobilia and blood cultures that later were positive for E. coli. In the emergency department patient's pain was treated with Toradol. She had mild epigastric tenderness. CT scan showed pneumobilia. Because of the similarities to her last admission patient has been admitted for serial liver enzymes and has been empirically started on Rocephin. [facility] History I have reviewed the patient's past medical history: Yes Medical History: Denies:: Cancer, Diabetes Mellitus Type 1, Diabetes Mellitus Type 2, MRSA Have you ever received a pneumonia vaccine?: No Have you received a flu vaccine this season?: No Comment:: Hospitalization March 2018 for pneumobilia and subsequent E. coli bacteremia Other Surgeries: Yes: No Previous Surgery, Cholecystectomy Amputation: No Fractures: No - *Social History Educational Level: Completed Grade School Smoking Status: Never smoker Alcohol Intake: never Occupational Status: employed Housing: house Household Members: children Travel in the last 8 weeks: None - Psychiatric History Expresses thoughts of harming self/others: None Suicide Plan Description: No Plan *Family Hx:: No significant family history Review of Systems - Review of Systems Review of systems:: pertinent systems reviewed and negative unless documented below - Constitutional Denies body ache(s), Denies chills, Denies fever(s) - *Cardiovascular Denies chest pain - *Respiratory Denies change in phlegm color - *Gastrointestinal Reports abdominal pain, Reports bloating, Reports nausea, Denies belching, Denies change in bowel habits, Denies change in stools, Denies coffee ground vomit, Denies constipation, Denies cramping, Denies loose stools, Denies heartburn, Denies difficulty swallowing, Denies feeling full early, Denies excessive passing of gas, Denies incontinent of stools, Denies heartburn, Denies vomiting blood, Denies bright, red blood in stools, Denies loose stools, Denies black, tarry stools, Denies pain with swallowing, Denies vomiting - *Neurologic Denies headache(s), Denies seizure-like activity Meds Home Medications Medication Instructions Recorded Confirmed Type No Known Home Medications 08/02/18 08/02/18 History Allergies Allergy/AdvReac Type Severity Reaction Status Date / Time No Known Allergies Allergy Verified 08/02/18 02:50 Exam Vital signs and Labs for Last 24 Hours: Temp Pulse Resp BP Pulse Ox 99.0 F 95 H 18 97/57 L 99 08/02/18 06:15 08/02/18 06:40 08/02/18 06:40 08/02/18 06:15 08/02/18 06:40 Laboratory Results - last 24 hr 08/02/18 02:50: Urine Color Yellow, Urine Appearance Clear, Urine pH 7.5, Ur Specific [place] 1.010, Urine Protein Negative, Urine Glucose (UA) Negative, Urine Ketones Negative, Urine Blood Negative, Urine Nitrate Negative, Urine Bilirubin Negative, Urine Urobilinogen 0.2, Ur Leukocyte Esterase Negative, Ur Squamous Epith Cells 3-5 08/02/18 02:50: WBC 6.4, RBC 4.20, Hgb 13.9, Hct 41.2, MCV 98.0, MCH 33.1 H, MCHC 33.8, RDW 13.2, Plt Count 272, MPV 7.9, Neut % (Auto) 87.4 H, Lymph % (Auto) 10.3, [place] % (Auto) 1.2 L, Eos % (Auto) 1.0, Baso % (Auto) 0.1, Neut # (Auto) 5.6, Lymph # (Auto) 0.7, [place] # (Auto) 0.1, Eos # (Auto) 0.1, Baso # (Auto) 0.0, Total Counted 100, Neutrophils % (Manual) 82 H, Band Neutrophils % 10.0 H, Lymphocytes % (Manual) 5 L, Eosinophils % (Manual) 3, Platelet Estimate Normal, RBC Morphology Normal 08/02/18 02:50: Urine HCG, Qual Negative 08/02/18 02:50: Sodium 140, Potassium 3.5, Chloride 102, Carbon Dioxide 26, Anion Gap 15.5 H, BUN 14, Creatinine 0.96, Estimated Creat Clear 86, Estimated GFR 64, Est GFR ( Amer) 78, Glucose 152 H, Calcium 8.9, Total Bilirubin 0.9, AST 172 H, ALT 123 H, Alkaline Phosphatase 146 H, C-Reactive Protein < 0.2, Total Protein 7.4, Albumin 3.6, Globulin 3.8 H, Albumin/Globulin Ratio 0.9 L, Amylase 101, Lipase 174 08/02/18 02:50: Influenza Type A Ag Negative, Influenza Type B Ag Negative 08/02/18 02:50: Lactate 3.4 H 08/02/18 02:50: ESR 12 08/02/18 02:50: Total Bilirubin 0.8, Direct Bilirubin 0.3 H, Indirect Bilirubin 0.5, AST 177 H, ALT 118 H, Alkaline Phosphatase 144 H, Total Protein 7.4, Albumin 3.6 I & O for Last 24 hours: Intake & Output 07/30/18 07/31/18 08/01/18 08/02/18 11:59 11:59 11:59 11:59 Intake Total 1999 Balance 1999 Weight 159 lb Narrative: Patient appears comfortable in bed. There is no scleral icterus. Oropharynx is moist and clear. Neck is without lymphadenopathy. Lungs are clear to auscultation. Heart has a regular rate and rhythm. Abdomen is soft and nontender with active bowel sounds. Neurologically patient moves all extremities and sensation is intact. Assessment and Plan (1) Pneumobilia Current visit: Yes Status: Acute Category: Medical Code(s): K83.8 - Other specified diseases of biliary tract (2) Status post cholecystectomy Current visit: Yes Status: Acute Category: Surgical Code(s): Z90.49 - Acquired absence of other specified parts of digestive tract (3) Elevated liver function tests Current visit: Yes Status: Acute Category: Medical Code(s): R94.5 - Abnormal results of liver function studies - Assessment and plan all Dx Assessment and Plan for all problems:: 1. IV fluids and clear liquid diet. GI consult in a.m. 2. Repeat liver functions in a.m. 3. Morphine for pain
[2018-08-02 07:10] LABS: Basophils % 0.1 % (0.1-2.0); Eosinophils % 0.3 % (0.1-12.0); Hematocrit 36.1 % (37.0-47.0); Lymphocytes # 0.3 K/mm3 (0.7-4.5); Lymphocytes % 1.5 % (10-50); Mean Corpuscular HGB Conc 33.4 g/dL (31.8-35.4); Mean Corpuscular Hemoglobin 33.1 pg (27.0-31.2); Mean Corpuscular Volume 99.3 fl (81-99); Mean Platelet Volume 7.8 fl (7.4-10.4); Monocytes # 0.2 K/mm3 (0.1-1.0); Monocytes % 1.4 % (1.7-9.3); Neutrophils # 15.6 K/mm3 (1.8-7.8); Neutrophils % 96.6 % (37.0-80.0); Platelet Count 214 K/mm3 (142-424); Red Blood Count 3.63 M/mm3 (4.20-5.40); Red Cell Distribution Width 13.2 % (11.5-17.5); White Blood Count 16.2 K/mm3 (4.8-10.8)
[2018-08-02 07:20] LABS: Anion Gap 15.9 mEq/L (5-15); Potassium 3.9 mmoL/L (3.5-5.1)
--- NOTE | 2018-08-02 11:21 | Pharmacy Consult Notes ---
[facility] Pharmacy VTE Monitoring - Patient Demographics Admission date: 08/02/18 Report Date: 08/02/18 Time: 11:21 Allergies/Adverse Reactions: Patient Allergies No Known Allergies Allergy (Verified 08/02/18 02:50) Height: 1.55 m Weight: 72.121 kg Patient Problems: Current Active Problems (This Medical Record has been edited. Action required.) Cholangitis (Acute) Pneumobilia (Acute) Status post cholecystectomy (Acute) Elevated liver function tests (Acute) - VTE Risk Labs: VTE Related Lab Results Hgb 12.0 g/dL (12.2-16.2) L D 08/02/18 06:55 Hct 36.1 % (37.0-47.0) L 08/02/18 06:55 Plt Count 214 K/mm3 (142-424) 08/02/18 06:55 BUN 13 mg/dL (7-18) 08/02/18 06:55 Creatinine 0.85 mg/dL (0.55-1.02) 08/02/18 06:55 Estimated Creat Clear 100 mL/min (50-200) 08/02/18 06:55 Was VTE Risk Assessment Performed: Yes VTE Risk Level: Very Low Risk - Prophylaxis Types of VTE Prophylaxis: TEDS Knee High (MITUL HOSE ORDER PLACED) Location of Applied Device: Not Applicable
[2018-08-03 06:58] LABS: Basophils % 0.2 % (0.1-2.0); Eosinophils # 0.1 K/mm3 (0.0-0.4); Eosinophils % 1.1 % (0.1-12.0); Hematocrit 35.9 % (37.0-47.0); Lymphocytes # 1.4 K/mm3 (0.7-4.5); Lymphocytes % 12.1 % (10-50); Mean Corpuscular HGB Conc 33.4 g/dL (31.8-35.4); Mean Corpuscular Hemoglobin 33.5 pg (27.0-31.2); Mean Corpuscular Volume 100.4 fl (81-99); Mean Platelet Volume 7.9 fl (7.4-10.4); Monocytes # 0.5 K/mm3 (0.1-1.0); Monocytes % 4.1 % (1.7-9.3); Neutrophils # 9.7 K/mm3 (1.8-7.8); Neutrophils % 82.4 % (37.0-80.0); Platelet Count 194 K/mm3 (142-424); Red Blood Count 3.58 M/mm3 (4.20-5.40); Red Cell Distribution Width 13.4 % (11.5-17.5); White Blood Count 11.8 K/mm3 (4.8-10.8)
[2018-08-03 07:09] LABS: Albumin Level 2.6 gm/dL (3.4-5.0); Bilirubin,Direct 0.3 mg/dL (0.0-0.2); Bilirubin,Indirect 0.4 mg/dL (0.0-0.9); Bilirubin,Total 0.7 mg/dL (0.2-1.0); Total Protein,Serum 5.9 gm/dL (6.4-8.2)
--- NOTE | 2018-08-03 07:22 | Progress Note ---
Internal Medicine - PN: Subj *Date: 08/03/18 *Time: 07:19 Interval history: Patient denies complaints of nausea, vomiting, abdominal pain. She has not had any fevers. Blood culture is growing E. coli. Sensitivities are still pending. Exam Vital signs and Labs for Last 24 Hours: Temp Pulse Resp BP Pulse Ox 98.2 F 64 17 107/64 L 100 08/03/18 04:00 08/03/18 04:00 08/03/18 04:00 08/03/18 04:00 08/03/18 04:00 Laboratory Results - last 24 hr 08/02/18 06:55: Sodium 141, Potassium 3.9, Chloride 108 H, Carbon Dioxide 21, Anion Gap 15.9 H, BUN 13, Creatinine 0.85, Estimated Creat Clear 100, Estimated GFR 74, Est GFR ( Amer) 90, Glucose 112 H D, Calcium 8.0 L D, Triglycerides 34, Cholesterol 109 L, LDL Cholesterol 47, VLDL Cholesterol 7, HDL Cholesterol 55, Cholesterol/HDL Ratio 2.0 08/02/18 06:55: Lactate 2.2 H 08/02/18 09:30: Lactate 2.4 H 08/03/18 06:35: WBC 11.8 H D, RBC 3.58 L, Hgb 12.0 L, Hct 35.9 L, MCV 100.4 H, MCH 33.5 H, MCHC 33.4, RDW 13.4, Plt Count 194, MPV 7.9, Neut % (Auto) 82.4 H, Lymph % (Auto) 12.1, [place] % (Auto) 4.1, Eos % (Auto) 1.1, Baso % (Auto) 0.2, Neut # (Auto) 9.7 H, Lymph # (Auto) 1.4, [place] # (Auto) 0.5, Eos # (Auto) 0.1, Baso # (Auto) 0.0 08/03/18 06:35: Total Bilirubin 0.7, Direct Bilirubin 0.3 H, Indirect Bilirubin 0.4, AST 142 H, ALT 287 H D, Alkaline Phosphatase 120 H, Total Protein 5.9 L, Albumin 2.6 L D I & O for Last 24 hours: Intake & Output 07/31/18 08/01/18 08/02/18 08/03/18 11:59 11:59 11:59 11:59 Intake Total 2490 / 2490 4420 / 4420 Balance 2490 / 2490 4420 / 4420 Weight 159 lb 157 lb Microbiology Reports for the Last 24 Hours: Microbiology 08/02/18 02:58 Blood Blood Culture - Preliminary 08/02/18 02:58 Blood Blood Culture - Preliminary Narrative: Patient is awake and alert. She does not appear to be in distress. Lungs are clear. Has a regular rhythm. Abdomen is soft and nontender Assessment and Plan (1) E coli bacteremia Current visit: Yes Status: Acute Category: Medical Code(s): R78.81 - Bacteremia (2) Pneumobilia Current visit: Yes Status: Acute Category: Medical Code(s): K83.8 - Other specified diseases of biliary tract (3) Status post cholecystectomy Current visit: Yes Status: Acute Category: Surgical Code(s): Z90.49 - Acquired absence of other specified parts of digestive tract (4) Elevated liver function tests Current visit: Yes Status: Acute Category: Medical Code(s): R94.5 - Abnormal results of liver function studies - Assessment and plan all Dx Assessment and Plan for all problems:: Await GI consultation for opinion on patient's pneumobilia. Continue IV Rocephin to treat E. coli bacteremia
--- NOTE | 2018-08-03 12:55 | Progress Note ---
[facility] Anesthesia Checklist - Patient Identification Patient Identification: Arm Band, Verbal (Name & ) - Structural Data Admitted From: Home Planned Operative Procedure/s: ERCP Consent for Planned Operative Procedure(s) Verified: Yes Verified Documents: Surgical Consent, History and Physical - NPO Status Verified Time NPO: 00:00 - Additional verifications Patient : No Anesthesia Reactions: No - Airway Assessment C-Spine Mobility Assessed: Yes TMJ Mobility Assessed: Yes Dentition: Good Dentition (Missing teeth) - Neurological Assessment Level of Consciousness: Awake Hx Seizures: No Numbness or tingling in extremities: No - Anesthesia Plan Anesthesia Risk discussed: Yes Anesthesia Plan: Verified ASA Class: I Anesthesia Type: MAC [facility] History I have reviewed the patient's past medical history: Yes Medical History: Denies:: Cancer, Diabetes Mellitus Type 1, Diabetes Mellitus Type 2, MRSA Have you ever received a pneumonia vaccine?: No Have you received a flu vaccine this season?: No Other Surgeries: Yes: No Previous Surgery, Cholecystectomy Amputation: No Fractures: No - *Social History Educational Level: Completed Grade School Smoking Status: Never smoker Alcohol Intake: never Occupational Status: employed Housing: house Household Members: children Travel in the last 8 weeks: None - Psychiatric History Expresses thoughts of harming self/others: None Suicide Plan Description: No Plan *Family Hx:: No significant family history
--- NOTE | 2018-08-03 14:59 | Procedure Note ---
[facility] Procedure Note Procedure Note:: ERCP procedure Report: Endoscopic retrograde cholangiopancreatography with biliary sphincterotomy Endoscopist: Gama Alberto II, MD Referring Physician: Corey Jeff MD/Thai Rosenthal MD Date of Procedure: August 03, 2018 Equipment: Olympus 180 side viewing endoscope duodenoscope Sedation: MAC sedation Indication: Mrs. Kim is a 42-year-old female who underwent cholecystectomy 10 years ago in [place]. The patient has had intermittent severe right upper quadrant abdominal pain radiating into the back. This happened in April 2018 and again this hospital admission. Her initial ALT level was 287 with ALT declining to 118 today. Her alkaline phosphatase was 144 with normal total bilirubin and normal pancreatic chemistries (amylase 101 and lipase 174). She did have a CT scan of the abdomen which I have reviewed showing pneumobilia. ERCP is performed for further evaluation. Procedure: Prior to the procedure, a history and physical exam was performed, and patient's medications and allergies were reviewed. The risks, benefits and alternatives of the sedation and procedure were discussed with the patient. All questions were answered and informed consent was obtained. The patient was brought to the fluoroscopic radiology room. Patient identification and proposed procedure were verified by the physician and the nurse. The patient was placed in a swimmer's position between left lateral decubitus and prone position and the scope was passed under direct vision. Throughout the procedure, the patient's blood pressure, pulse, and oxygen saturations were monitored continuously. The ERCP was accomplished without difficulty. The patient tolerated the procedure well. Findings: The side-viewing duodenal scope was advanced directly into the upper esophagus and passed to the second portion of the duodenum. The esophagus, stomach and duodenum were grossly normal. The pancreatic duct was initially cannulated and the pancreatogram showed a normal head body and tail of the gland with limited contrast performed. The pancreatic duct was 2-3 mm and there were no ductular ectasias. The genu and accessory duct were normal. Next, the common bile duct was cannulated and the cholangiogram showed surgical clips across the mid common bile duct. No contrast was noted above the surgical clips indicating prior transection of the common bile duct. To gain better access of the biliary sphincterotomy was performed initially to see if we could get a wire across. This appeared to be a very old problem. After reviewing the CT scan again it appears that she has had prior bile duct injury at time of laparoscopic cholecystectomy with probable choledochojejunostomy. Impression: 1. Prior bile duct significant injury at time of laparoscopic cholecystectomy (bile duct transection) with probable choledochojejunostomy (bile duct drainage system for out of reach of endoscope) 2. Normal pancreatogram Plan: I have discussed the case with Dr. Wander Bullard. I would start with MRCP to get some knowledge as to the anatomy. Given her symptoms of biliary pain, she may be developing stricture at the anastomotic site or stones within the proximal biliary system. This patient will need to go to the [facility] and will likely need percutaneous transhepatic cholangiography. I will discuss the findings with the patient and family.
[2018-08-04 06:52] LABS: Basophils % 0.4 % (0.1-2.0); Eosinophils # 0.1 K/mm3 (0.0-0.4); Hematocrit 33.3 % (37.0-47.0); Hemoglobin 11.2 g/dL (12.2-16.2); Lymphocytes # 1.5 K/mm3 (0.7-4.5); Lymphocytes % 22.8 % (10-50); Mean Corpuscular HGB Conc 33.6 g/dL (31.8-35.4); Mean Corpuscular Hemoglobin 33.4 pg (27.0-31.2); Mean Corpuscular Volume 99.4 fl (81-99); Mean Platelet Volume 8.6 fl (7.4-10.4); Monocytes # 0.3 K/mm3 (0.1-1.0); Neutrophils # 4.7 K/mm3 (1.8-7.8); Neutrophils % 70.8 % (37.0-80.0); Platelet Count 193 K/mm3 (142-424); Red Blood Count 3.35 M/mm3 (4.20-5.40); Red Cell Distribution Width 13.3 % (11.5-17.5); White Blood Count 6.7 K/mm3 (4.8-10.8)
[2018-08-04 07:06] LABS: Albumin Level 2.4 gm/dL (3.4-5.0); Bilirubin,Direct 0.2 mg/dL (0.0-0.2); Bilirubin,Indirect 0.2 mg/dL (0.0-0.9); Bilirubin,Total 0.4 mg/dL (0.2-1.0); Total Protein,Serum 5.7 gm/dL (6.4-8.2)
--- NOTE | 2018-08-04 07:13 | Progress Note ---
Internal Medicine - PN: Subj *Date: 08/04/18 *Time: 07:07 Interval history: Patient reports a headache and slight right upper abdominal discomfort this morning, has not taken any pain medications at this time. Otherwise reports a good night without nausea, vomiting or diarrhea. Tolerated clear liquids yesterday evening, currently NPO for MRCP. Patient is inquiring about discharge home. Exam Vital signs and Labs for Last 24 Hours: Temp Pulse Resp BP Pulse Ox 98.2 F 57 L 16 116/77 100 08/04/18 04:00 08/04/18 04:00 08/04/18 04:00 08/04/18 04:00 08/04/18 04:00 Laboratory Results - last 24 hr 08/03/18 06:35: Total Bilirubin 0.7, Direct Bilirubin 0.3 H, Indirect Bilirubin 0.4, AST 142 H, ALT 287 H D, Alkaline Phosphatase 120 H, Total Protein 5.9 L, Albumin 2.6 L D I & O for Last 24 hours: Intake & Output 08/01/18 08/02/18 08/03/18 08/04/18 23:59 23:59 23:59 23:59 Intake Total 6118 / 6118 2592 / 2592 Balance 6118 / 6118 2592 / 2592 Weight 159 lb 157 lb 155 lb Microbiology Reports for the Last 24 Hours: Microbiology 08/02/18 02:58 Blood Blood Culture - Final Escherichia coli 08/02/18 02:58 Blood Blood Culture - Final Escherichia coli - Constitutional no acute distress - *Routine HEENT Exam Head: Present: normocephalic - *Routine Respiratory Exam Present: CTA bilaterally. Absent: accessory muscle use, decreased breath sounds - *Routine Cardiovascular Exam Present: RRR, Normal S1, Normal S2 - *Routine Abdominal Exam Present: soft, normoactive bowel sounds, tenderness Comments: RUQ tenderness - *Routine Extremities Exam Absent: cyanosis, edema - *Routine Skin Exam Present: intact. Absent: cyanosis, pallor - *Routine Neurological Exam Present: alert, oriented X3 - Routine Psychiatric Exam Present: normal affect Assessment and Plan (1) E coli bacteremia Current visit: Yes Status: Acute Category: Medical Code(s): R78.81 - Bact eremia (2) Pneumobilia Current visit: Yes Status: Acute Category: Medical Code(s): K83.8 - Other specified diseases of biliary tract (3) Status post cholecystectomy Current visit: Yes Status: Acute Category: Surgical Code(s): Z90.49 - Acquired absence of other specified parts of digestive tract (4) Elevated liver function tests Current visit: Yes Status: Acute Category: Medical Code(s): R94.5 - Abnormal results of liver function studies - Assessment and plan all Dx Assessment and Plan for all problems:: MRCP today for further view of patients anatomy, will remain NPO until then, may do clear liquid diet after, will reassess this afternoon for possible discharge to follow up with the [facility] on an outpatient basis.
--- NOTE | 2018-08-05 07:26 | Discharge Summary ---
General - General Admission date:: 08/02/18 Discharge date: 08/04/18 HPI HPI: 42-year-old female presented to the emergency department early this morning with complaints of epigastric abdominal pain. Onset of pain was around 9 PM yesterday evening 2 hours after she had last eaten. Patient's last meal was tacos. Pain gradually increased through the night until she presented to the emergency department. Pain was reminiscent of similar pain that led to hospitalization in March 2018 when patient was found to have pneumobilia and blood cultures that later were positive for E. coli. In the emergency department patient's pain was treated with Toradol. She had mild epigastric tenderness. CT scan showed pneumobilia. Because of the similarities to her last admission patient has been admitted for serial liver enzymes and has been empirically started on Rocephin. Hospital Course Hospital Course: Patient was admitted and placed on IV Rocephin and serial hepatic function tests were ordered. Patient had an additional rise in her LFTs but then they began to trend down. Blood culture returned positive for E. coli that was sensitive to Rocephin. Dr[facility] the patient for evaluation and ERCP was performed. 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 This was related to common bile duct injury at the time of her cholecystectomy [address] Alberto suggested an MRCP to better delineate the anatomy. This did confirm the choledochojejunostomy and was highly suspicious for a stricture with in the choledochojejunostomy. Dolly suggested evaluation at the [facility] as patient may need percutaneous transhepatic cholangiogram. Patient was improving and was bridged home. She will follow-up in my office within the next days. At that time she will be referred to [facility]. Objective Vital signs: Temp Pulse Resp BP Pulse Ox 97.9 F 59 L 14 110/60 100 08/04/18 11:31 08/04/18 11:31 08/04/18 11:31 08/04/18 11:31 08/04/18 11:31 DS: Diagnosis - Discharge Diagnosis (1) E coli bacteremia Status: Acute (2) Pneumobilia Status: Acute (3) Status post cholecystectomy Status: Acute (4) Elevated liver function tests Status: Acute Discharge Plan - Patient Discharge Instructions ACTIVITY: Continue current activity DIET: advance to your usual diet Patient Instructions: Gallstones, DI for Abdominal Pain-Adult - Follow up Plan Follow up with: Sherrie Zuniga APRN [Nurse Practitioner] - 08/07/18 1:30 pm Disposition: Home, Self-Detention Medications: Home Medications Medication Instructions Recorded Confirmed Type Ceftriaxone Sodium [Rocephin 1gm 1 gm IV Q24H vial 08/04/18 Rx vial] Prescriptions/Medication Reconciliation: New Ceftriaxone Sodium [Rocephin 1gm vial] 1 gm IV Q24H vial
== END 2018-08-04 12:18 | disposition home or self-care (01) | DRG 445 ==
LOC: ER 02:33 → 2ND 02:33 → OBSVTOIN 05:50 → 2ND 05:51
PROVIDERS: ADMIT Family Medicine; ATTEND Family Medicine
CPT/HCPCS: 36415; 74177; 74181; 74330; 76376; 80048; 80053; 80061; 80076; 81001; 81025; 82150; 83605; 83690; 85007; 85025; 85651; 86140; 87040; 87077; 87186; 87275; 87276; 96365; 96366; 96367; 96375; 99285; J2405; Q9967

== ENCOUNTER 2018-08-05 08:00 | Outpatient (CLI) | payer OTHER, SELFPAY ==
[2018-08-05 08:50] VITALS: BP 94/53; PULSE 64; RESP 16; O2SAT 100
[2018-08-05 09:20] VITALS: BP 91/51; PULSE 71; RESP 16
== END 2018-08-05 09:30 | disposition home or self-care (01) ==
LOC: INF 08:23
PROVIDERS: Visit Provider Family Medicine
DX: R78.81 Bacteremia (principal); A41.51 Sepsis due to Escherichia coli [E. coli]
CPT/HCPCS: 96365

== ENCOUNTER 2018-08-06 08:21 | Outpatient (CLI) | payer OTHER, SELFPAY ==
[2018-08-06 08:35] VITALS: BP 105/62; PULSE 64; RESP 18; TEMP 36.7; O2SAT 99
[2018-08-06 08:51] VITALS: BP 108/59; PULSE 70; RESP 18; TEMP 36.6; O2SAT 99
[2018-08-06 09:30] VITALS: BP 110/62; PULSE 65; RESP 18; TEMP 36.7; O2SAT 98
== END 2018-08-06 09:30 | disposition home or self-care (01) ==
LOC: INF 08:21
PROVIDERS: Visit Provider Family Medicine
DX: B96.20 Unspecified Escherichia coli [E. coli] as the cause of diseases classified elsewhere (principal)
CPT/HCPCS: 96365

== ENCOUNTER 2018-08-07 08:20 | Outpatient (CLI) | payer OTHER, SELFPAY ==
[2018-08-07 08:40] VITALS: BP 100/56; PULSE 63; RESP 18; O2SAT 99
[2018-08-07 09:15] VITALS: BP 103/60; PULSE 62; RESP 16
== END 2018-08-07 09:30 | disposition home or self-care (01) ==
LOC: INF 08:24
PROVIDERS: Visit Provider Family Medicine
DX: B96.20 Unspecified Escherichia coli [E. coli] as the cause of diseases classified elsewhere (principal); R78.81 Bacteremia
CPT/HCPCS: 96365

== ENCOUNTER → 2018-08-08 08:37 | Outpatient (CLI) | payer OTHER, SELFPAY ==
[2018-08-08 09:01] VITALS: BP 105/48; PULSE 56; RESP 15; TEMP 36.4; O2SAT 99
[2018-08-08 09:29] VITALS: BP 108/51; PULSE 61; RESP 14; TEMP 36.6; O2SAT 99
== END ==
PROVIDERS: PCP Family Medicine; Visit Provider Family Medicine
DX: R78.81 Bacteremia (principal); B96.20 Unspecified Escherichia coli [E. coli] as the cause of diseases classified elsewhere
CPT/HCPCS: 96365

== ENCOUNTER → 2022-11-20 07:46 | Outpatient (CLI) | payer OTHER, SELFPAY ==
--- NOTE | 2022-11-20 07:53 | MM_ITS ---
PROCEDURE INFORMATION: Exam: Bilateral Screening 3D Mammography Exam date and time: 11/20/2022 7:50 AM Age: 46 years old Clinical indication: Screening examination TECHNIQUE: Imaging protocol: Bilateral Screening tomosynthesis and 2D mammography including computer-aided detection (CAD) when performed. COMPARISON: MG SCBI MM Dig screening mamm BI w/CAD 03/06/2018 10:46 AM FINDINGS: MAMMOGRAPHY: Breast composition: There are scattered areas of fibroglandular density. Mass: None. Architectural distortion: None. Calcifications: No suspicious calcifications. Asymmetric density: None. Skin thickening: None. Axillary adenopathy: None. IMPRESSION: No mammographic evidence of malignancy. Annual screening is recommended unless otherwise clinically indicated. ASSESSMENT: BI-RADS Category 1: Negative
[2022-11-20 08:52] LABS: Basophils # 0.1 K/mm3 (0-0.2); Basophils % 0.6 % (0.1-2.0); Eosinophils # 0.9 K/mm3 (0.0-0.4); Eosinophils % 10.9 % (0.1-12.0); Hematocrit 42.9 % (37.0-47.0); Hemoglobin 14.2 g/dL (12.2-16.2); Lymphocytes # 2.1 K/mm3 (0.7-4.5); Lymphocytes % 26.4 % (10-50); Mean Corpuscular HGB Conc 33.1 g/dL (31.8-35.4); Mean Corpuscular Hemoglobin 33.1 pg (27.0-31.2); Mean Platelet Volume 8.5 fl (7.4-10.4); Monocytes # 0.4 K/mm3 (0.1-1.0); Monocytes % 5.3 % (1.7-9.3); Neutrophils # 4.6 K/mm3 (1.8-7.8); Neutrophils % 56.9 % (37.0-80.0); Platelet Count 390 K/mm3 (142-424); Red Blood Count 4.29 M/mm3 (4.20-5.40); Red Cell Distribution Width 13.2 % (11.5-17.5); White Blood Count 8.1 K/mm3 (4.8-10.8)
[2022-11-20 09:40] LABS: Alanine Aminotransferase 38 U/L (12-78); Albumin Level 4.1 g/dl (3.5-5.0); Albumin/Globulin Ratio 1.3 (1.1-1.8); Alkaline Phosphatase 156 U/L (38-126); Anion Gap 18.7 mEq/L (5-15); Aspartate Amino Transferase 46 U/L (14-36); Bilirubin,Total 0.3 mg/dl (0.2-1.3); Blood Urea Nitrogen 10 mg/dl (7-17); Calcium 8.9 mg/dl (8.4-10.2); Carbon Dioxide 24 mmol/L (22.0-30.0); Chloride 99 mmol/L (98-107); Chol/HDL Ratio 2.1 (1-3.5); Cholesterol 154 mg/dl (140-200); Estimated Glomerular Filt Rate 109 ml/min (>60); GFR (African American) 131 ML/MIN (>60); Globulin 3.1 g/dL (1.3-3.2); Glucose 89 mg/dl (74-100); HDL Cholesterol 74 mg/dl (40-60); Potassium 4.7 mmoL/L (3.5-5.1); Sodium 137 mmol/L (136-145); Total Protein,Serum 7.2 g/dl (6.3-8.2); Triglycerides 114 mg/dl (30-150); VLDL Cholesterol 23 mg/dL (0-40)
[2022-11-20 09:56] LABS: Triiodothryronine (T3) Uptake 23 % (23.5-40.5)
[2022-11-20 10:11] LABS: Thyroid Stimulating Hormone 3.68 uIU/mL (0.465-4.68)
[2022-11-20 19:14] LABS: Free Thyroxine Index 2.7 ug/dL (5.93-13.13); T4 (Thyroxine) 11.7 ug/dl (5.53-11.0)
== END ==
PROVIDERS: Visit Provider Nurse Practitioner Obstetrics & Gynecology
DX: Z01.419 Encounter for gynecological examination (general) (routine) without abnormal findings (principal); Z12.31 Encounter for screening mammogram for malignant neoplasm of breast
CPT/HCPCS: 36415; 77063; 77067; 80053; 80061; 84436; 84443; 84479; 85025

== ENCOUNTER 2023-12-08 08:03 | Outpatient (CLI) | payer BC, SELFPAY ==
--- NOTE | 2023-12-08 08:09 | MM_ITS ---
PROCEDURE INFORMATION: Exam: MG Bilateral Screening 3D Mammography Exam date and time: 12/08/2023 7:56 AM Age: 48 years old Clinical indication: Screening examination TECHNIQUE: Imaging protocol: Bilateral Screening tomosynthesis and 2D mammography including computer-aided detection (CAD) when performed. COMPARISON: 1. MG MM DIG SCREENING MAMM BI W/CAD 11/20/2022 7:50 AM 2. MG SCBI MM Dig screening mamm BI w/CAD 03/06/2018 10:46 AM FINDINGS: MAMMOGRAPHY: Breast composition: There are scattered areas of fibroglandular density. Mass: None. Architectural distortion: None. Calcifications: No suspicious calcifications. Asymmetric density: None. Skin thickening: None. Axillary adenopathy: None. IMPRESSION: No mammographic evidence of malignancy. Annual screening is recommended unless otherwise clinically indicated. ASSESSMENT: BI-RADS Category 1: Negative
== END 2023-12-08 23:59 | disposition home or self-care (01) ==
LOC: RAD 08:04
PROVIDERS: Visit Provider Nurse Practitioner Obstetrics & Gynecology
DX: Z12.31 Encounter for screening mammogram for malignant neoplasm of breast (principal)
CPT/HCPCS: 77063; 77067